=== PATIENT | male | born 1995 | race Two or more races ===

== ENCOUNTER 2019-06-05 21:30 | Emergency (ER) | payer MEDICAID, OTHER ==
[~2019-06-05] VITALS: Ht 177.8 cm; Wt 85.0 kg
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
[2019-06-05] MEDS ORDERED: LIDOCAINE-MPF 1%, 5ML ONE (23:39)
[2019-06-06 00:05] VITALS: BP 132/74
--- NOTE | 2019-06-06 00:05 | NUR ---
specialist at bedside for sutures
== END 2019-06-06 00:48 | disposition home or self-care (01) ==
LOC: ED 06-06 00:41
DX: S01.111A Laceration without foreign body of right eyelid and periocular area, initial encounter (principal); I10 Essential (primary) hypertension; F17.200 Nicotine dependence, unspecified, uncomplicated; X58.XXXA Exposure to other specified factors, initial encounter; Y93.89 Activity, other specified; Y92.89 Other specified places as the place of occurrence of the external cause; Y99.8 Other external cause status
CPT/HCPCS: 12011; 99285